=== PATIENT | female | born 1965 | race Caucasian/White ===

== ENCOUNTER 2018-03-03 15:48 | Emergency (ER) | payer OTHER ==
[~2018-03-03] VITALS: Ht 175.3 cm; Wt 99.8 kg
[2018-03-03] MEDS ORDERED: LOSARTAN POTASSIUM 100 MG PO (16:12)
--- NOTE | 2018-03-03 16:58 | NUR ---
DR FINN AT THE BEDSIDE FOR MSE.
[2018-03-03] MEDS ORDERED: ACETAMINOPHEN ES 500 MG TABLET PO ONE (17:00)
[2018-03-03] MEDS ORDERED: IBUPROFEN 600 MG TABLET PO ONE (17:00)
[2018-03-03] MEDS ORDERED: ACETAMINOPHEN ES 500 MG TABLET ONE (17:07)
[2018-03-03] MEDS ORDERED: IBUPROFEN 600 MG TABLET ONE (17:07)
[2018-03-03 17:41] VITALS: BP 139/87
--- NOTE | 2018-03-03 17:41 | NUR ---
PT WAS D/C TO HOME. D/C INSTRUCTIONS GIVEN TO THE PT.
== END 2018-03-03 17:42 | disposition home or self-care (01) ==
LOC: ER 15:50
DX: S50.812A Abrasion of left forearm, initial encounter (principal); S63.601A Unspecified sprain of right thumb, initial encounter; S50.12XA Contusion of left forearm, initial encounter; Z91.041 Radiographic dye allergy status; V49.40XA Driver injured in collision with unspecified motor vehicles in traffic accident, initial encounter; Y93.89 Activity, other specified; Y92.410 Unspecified street and highway as the place of occurrence of the external cause; Y99.8 Other external cause status
CPT/HCPCS: 73130; A4663; A9150